=== PATIENT | female | born 1960 | race Caucasian/White ===

== ENCOUNTER 2017-09-22 10:15 | Emergency (ER) | payer BC ==
[~2017-09-22] VITALS: Ht 154.9 cm; Wt 54.9 kg
[2017-09-22 13:08] LABS: HEMATOCRIT 40.4 % (36.0-46.0); HEMOGLOBIN 14.4 G/DL (11.9-15.5); MCH 32.6 PG (29.0-34.0); MCHC 35.6 G/DL (30.0-36.0); MCV 91.4 FL (83-99); PLATELET COUNT 77 K/uL (156-360); RBC DIS.WIDTH-SD 43.8 % (39-53); RED BLOOD COUNT 4.42 M/uL (3.80-5.20); WHITE BLOOD COUNT 7.3 K/uL (4.1-10.2)
[2017-09-22 13:18] LABS: ALBUMIN 3.5 g/dL (3.2-4.8); CHLORIDE 100 mEq/L (99-109); POTASSIUM 4.6 mEq/L (3.7-5.4); SODIUM 138 mEq/L (136-147)
[2017-09-22 13:20] LABS: GLUCOSE 104 mg/dL (70-99); TOTAL PROTEIN 7.3 g/dL (6.4-8.3)
[2017-09-22 13:22] LABS: TOTAL BILIRUBIN 2.7 mg/dL (0.0-1.0)
[2017-09-22 13:24] LABS: ALKALINE PHOSPHATASE 1003 IU/L (3-129); CREATININE 0.7 mg/dL (0.6-1.3); GFR ESTIMATE (CALCULATED) > 59 mL/min/
[2017-09-22 13:25] LABS: AST (GOT) 222 IU/L (2-34); UREA NITROGEN (BUN) 20 mg/dL (9-23)
[2017-09-22 13:27] LABS: ALT (GPT) 180 IU/L (3-49)
[2017-09-22 15:09] LABS: APPEARANCE CLEAR ((CLEAR)); BILIRUBIN NEGATIVE; BLOOD NEGATIVE; COLOR AMBER ((YELLOW)); GLUCOSE (STRIP) NEGATIVE; KETONES NEGATIVE; LEUKOCYTES TRACE; NITRITE NEGATIVE; PROTEIN (STRIP) NEGATIVE; SPECIFIC GRAVITY 1.015 (1.000-1.030); UROBILINOGEN 0.2 MG/DL (0.2-1.0)
[2017-09-22 15:29] LABS: BACTERIA RARE /HPF; EPITHELIAL CELLS 1+ /HPF; MUCUS TRACE /LPF; RED BLOOD CELLS 0-5 /HPF (0-5); UCUL ADDED? NO; WHITE BLOOD CELLS 0-5 /HPF (0-5)
[2017-09-22 15:38] VITALS: BP 124/85
== END 2017-09-22 15:38 | disposition home or self-care (01) ==
LOC: EME 10:15
PROVIDERS: Nurse Practitioner Family
DX: R53.1 Weakness (principal); R11.0 Nausea; R10.13 Epigastric pain; T46.6X5A Adverse effect of antihyperlipidemic and antiarteriosclerotic drugs, initial encounter; B17.9 Acute viral hepatitis, unspecified; I10 Essential (primary) hypertension; R00.0 Tachycardia, unspecified; R94.31 Abnormal electrocardiogram [ECG] [EKG]; E78.5 Hyperlipidemia, unspecified; Z88.5 Allergy status to narcotic agent; Z88.2 Allergy status to sulfonamides
CPT/HCPCS: 80053; 81003; 85027; 93005; 99281; 99285